=== PATIENT | female | born 1950 | race African-American/Black ===

== ENCOUNTER → 2016-12-14 | Outpatient (CLI) | payer MEDICARE, OTHER ==
--- NOTE | 2016-12-14 17:37 | WOMENS IMAGING REPORT ---
EXAM DESCRIPTION: 3D SCREENING MAMMO BILAT COMPLETED DATE/TIME: 12/14/2016 10:02 am REASON FOR STUDY: ROUTINE SCREENING; Z12.31 Z12.31 ENCNTR SCREEN MAMMOGRAM FOR MALIGNANT NEOPLASM O F YULIYA COMPARISON: Multiple since 2009 TECHNIQUE: Standard craniocaudal and mediolateral oblique views of each breast recorded using digita l acquisition and breast tomosynthesis. LIMITATIONS: None. FINDINGS: Findings present which are benign by mammographic criteria. No suspicious masses, calcifi cations or architectural distortion. Pertinent benign findings: Stable scattered benign skin calcifications Read with the assistance of CAD. .[facility] - R2 Cenova Version 1.3 .[facility] - R2 Cenova Version 1.3 .[facility] - R2 Cenova Version 2.4 .[facility] - R2 Cenova Version 2.4 .[facility] - R2 Digital Coordinator Version 9.2 Benign mammographic findings may include one or more of the following: Smooth masses, popcorn/rim/co arse calcifications, asymmetries, post-procedure changes, and lesions with long-standing stability. IMPRESSION: BENIGN MAMMOGRAPHIC FINDINGS. BIRADS 2 BREAST DENSITY: a. The breasts are almost entirely fatty. BIRAD: 2 BENIGN FINDING(S) RECOMMENDATION: RECOMMENDATION: ROUTINE SCREENING Please continue yearly bilateral screening tomosynthesis in December 2017 COMMENT: The patient has been notified of the results by letter per SA requirements. Additional no tification policies are in place for contacting patient with suspicious or incomplete findings. Quality ID #[id number]: The [employer] recommends an annual screening mammogram for women aged 40 years or over. This facility utilizes a reminder system to ensure that all patients receive reminder letters, and/or direct phone calls for appointments. This includes reminders for routine scr eening mammograms, diagnostic mammograms, or other Breast Imaging Interventions when appropriate. Th is patient will be placed in the appropriate reminder system. The [employer] (ACR) has developed recommendations for screening MRI of the breast s in certain patient populations, to be used in conjunction with mammography. Breast MRI surveillanc e may be appropriate for women with more than 20% lifetime risk of developing breast cancer as deter mined by genetic testing, significant family history of the disease, or history of mantle radiation f or Hodgkins Disease. ACR Practice Guidelines 2008. DBT Technology DBT is a type of tomographic mammography. With conventional mammography, overlapping breast tissue ma y make lesions difficult to detect, even with good compression. DBT uses an x-ray tube that rotates a round the breast, taking images at different angles. These images are then combined to create thin sl ices of the breast that the radiologist can view as a 3D reconstruction. The [employer] unit can perform full-field digital mammograms (2D imaging); or DBT (3D imaging); or both, in a combination mode that quickly performs both the mammogram and the tomosynthesis scan while the breast is still compressed. PQRS 6045F: Fluoroscopic imaging is not utilized for breast tomosynthesis. TECHNICAL DOCUMENTATION: FINDING NUMBER: (1) ASSESSMENT: (1) JOB ID: [id number] [employer]- All Rights Reserved
== END ==
LOC: WI 09:30
PROVIDERS: ATTEND Internal Medicine Geriatric Medicine
DX: Z12.31 Encounter for screening mammogram for malignant neoplasm of breast (principal)
CPT/HCPCS: 77063; G0202; 77067

== ENCOUNTER → 2017-10-07 | Outpatient (CLI) | payer MEDICARE ==
[2017-10-07 14:18] LABS: ALANINE AMINOTRANSFERASE 29 U/L (9-52); ALBUMIN 3.7 g/dL (3.5-5.0); ALKALINE PHOSPHATASE 75 U/L (38-126); ANION GAP 13 (5-19); ASPARTATE AMINO TRANSFERASE 29 U/L (14-36); BILIRUBIN,DIRECT 0.4 mg/dL (0.0-0.4); BILIRUBIN,TOTAL 0.4 mg/dL (0.2-1.3); BLOOD UREA NITROGEN 19 mg/dL (7-20); CALCIUM 9.6 mg/dL (8.4-10.2); CARBON DIOXIDE 32 mmol/L (22-30); CHLORIDE 103 mmol/L (98-107); GLUCOSE 101 mg/dL (75-110); POTASSIUM 4.1 mmol/L (3.6-5.0); SODIUM 148.3 mmol/L (137-145); TOTAL PROTEIN 7.4 g/dL (6.3-8.2)
== END ==
LOC: OD 12:34
PROVIDERS: ATTEND Internal Medicine Geriatric Medicine
DX: I10 Essential (primary) hypertension (principal)
CPT/HCPCS: 36415; 80053

== ENCOUNTER 2017-12-26 08:30 | Inpatient (IN) | payer MEDICARE ==
--- NOTE | 2017-12-23 16:51 | Physician Advisory Note ---
Physician Advisor ProgressNote .: Pursuant to the plan for [facility], I have reviewed the medical record for this patient. Physician Advisor Statement: Surgical necessity: excellent documentation in H&P of all surgical necessity points, except need details of x-ray report findings - jt space narrowing, osteophytes, .... Status: Medicare pt w/DM 2, CAD requiring angioplasty, gout, HTN, hypothyroidism, prior gastric bypass, underlying anemia, very limited ambulation for some time, expected to need rehab post-op per pre-op nurse. Surgery as Inpatient is appropriate. Thanks! CK
[~2017-12-26 08:30] MED LIST: BUPIVACAINE INJ/PF LIPOSOME/PF 266 MG/20 ML SDV INJ PRN; CEFAZOLIN INJ 1 GM VIAL IV PRN; IBUPROFEN 800 MG in NORMAL SALINE 250 ML IV PRN; LANSOPRAZOLE 15 MG TAB.RAP.DR PO PRN; OXYCODONE HCL SR 10 MG TABLET PO PRN; RINGERS SOLUTION,LACTATED 1,000 ML IV PRN; VANCOMYCIN HCL 1,000 MG in DEXTROSE 5%-WATER 250 ML IV PRN
[2017-12-26] MEDS ORDERED: OXYCODONE HCL SR 10 MG TABLET PO ONE (10:03)
[2017-12-26] MEDS ORDERED: LANSOPRAZOLE 15 MG TAB.RAP.DR ONE (10:03)
[2017-12-26] MEDS ORDERED: MIDAZOLAM 2 MG/2 ML INJ ONE (10:16)
[2017-12-26] MEDS ORDERED: ONDANSETRON HCL INJ/PF 4 MG/2 ML SDV ONE (10:16)
[2017-12-26] MEDS ORDERED: FENTANYL CITRATE INJ/PF 100 MCG/2 ML AMPUL ONE (10:16)
[2017-12-26] MEDS ORDERED: TRANEXAMIC ACID INJ/PF 1,000 MG/10 ML SDV IV ONE ×3 (10:17→17:16)
[2017-12-26] MEDS ORDERED: PROPOFOL INJ 200 MG/20 ML VIAL IV ONE (10:17)
[2017-12-26] MEDS ORDERED: CLINDAMYCIN 600 MG/D5W RTU 600 MG/50 ML RTUPB IV ONE (10:21)
[2017-12-26] MEDS ORDERED: THROMBIN (BOVINE) 5000 UNIT EPITAXIS KIT ONE (10:25)
[2017-12-26] MEDS ORDERED: BUPIVACAINE INJ/PF LIPOSOME/PF 266 MG/20 ML SDV ONE (10:25)
[2017-12-26] MEDS ORDERED: THROMBIN (BOVINE) TOPICAL 20000 UNIT VIAL ONE (10:25)
[2017-12-26] MEDS ORDERED: BUPIVACAINE HCL/DEX-WATER/PF 15 MG/2 ML AMPULE ONE (10:44)
[2017-12-26] MEDS ORDERED: PROMETHAZINE HCL INJ 25 MG/1 ML VIAL IV PRN ×2 (12:04)
[2017-12-26] MEDS ORDERED: MORPHINE SULFATE 10 MG/ML INJ IV PRN ×3 (12:04→13:02)
[2017-12-26] MEDS ORDERED: FENTANYL CITRATE INJ/PF 100 MCG/2 ML AMPUL IV PRN ×3 (12:04)
[2017-12-26] MEDS ORDERED: MEPERIDINE HCL/PF INJ 25 MG/1 ML DISP.SYRIN IV PRN (12:04)
[2017-12-26] MEDS ORDERED: DIPHENHYDRAMINE HCL 50 MG/ML VIAL IV PRN ×2 (12:04→13:02)
[2017-12-26] MEDS ORDERED: RINGERS SOLUTION,LACTATED 1,000 ML IV PRN (13:02)
[2017-12-26] MEDS ORDERED: OXYCODONE HCL IR 5 MG TABLET PO PRN (13:02)
[2017-12-26] MEDS ORDERED: ACETAMINOPHEN 325 MG TABLET PO PRN (13:02)
[2017-12-26] MEDS ORDERED: MAG HYDROX/AL HYDROX/SIMETH SUSP 30 ML UDCUP PO PRN (13:02)
[2017-12-26] MEDS ORDERED: ONDANSETRON 4 MG TAB.RAPDIS PO PRN (13:02)
[2017-12-26] MEDS ORDERED: ZOLPIDEM TARTRATE 5 MG TABLET PO PRN (13:02)
[2017-12-26] MEDS ORDERED: ONDANSETRON HCL INJ/PF 4 MG/2 ML SDV IV PRN (13:02)
--- NOTE | 2017-12-26 13:02 | Operative Report ---
Operative Report DATE OF SURGERY: 12/26/17 PREOPERATIVE DIAGNOSIS: Left knee arthritis OPERATION: Left knee arthroplasty SURGEON: DEANA OBRIEN ANESTHESIA: Spinal TISSUE REMOVED OR ALTERED: Bone to pathology ESTIMATED BLOOD LOSS: 100 PROCEDURE: Implants used: Femur: Mejia triathlon size 5 CR femur Tibia: 4 tibia Tibial liner: 11 mm CS insert Patella: 32 mm oval patella Procedure with the patient supine on the operating table the left the limb is prepped and draped in a sterile fashion. The limb was elevated for exsanguination and the tourniquet inflated to 280 torr. A standard midline median parapatellar approach the knee is taken. Access is gained to the femoral canal through the intercondylar notch. Intramedullary alignment instrumentation used to resect 10 mm of distal femur in 5 of valgus. Sizing guide indicated a size 5 femur. Appropriate cutting jig is then used to fashion anterior posterior and chamfer cuts. A trial reduction femurs performed and this is judged to be adequate. Attention was next turned to the tibia. Using an extra medullary alignment system two millimeters was resected off the lateral tibial plateau. This is sized to a size 4 tibia. A trial reduction was now performed with a 5 femur and a for tibia using a 11 millimeters spacer. It is full extension and central patellofemoral tracking. The articular surface the patella was next resected using an oscillating saw. All trial implants were removed. Polymethylmethacrylate is mixed and used to cement the above implants in place. On adequate curing the cement excess cement was removed the tourniquet was deflated hemostasis obtained the wound is then closed in layers using interrupted Vicryl followed by tim. A sterile compressive dressing was applied and the patient returned to recovery room in satisfactory condition.
[2017-12-26] MEDS ORDERED: EPHEDRINE SULFATE INJ 50 MG/1 ML AMPULE ONE (13:30)
--- NOTE | 2017-12-26 14:22 | RADIOLOGY REPORT (SQ) ---
EXAM DESCRIPTION: KNEE LEFT 2 VIEWS COMPLETED DATE/TIME: 12/26/2017 1:56 pm REASON FOR STUDY: Post OP -Long Cassette in PACU M17.12 UNILATERAL PRIMARY OSTEOARTHRITIS, LEFT KNE E COMPARISON: None. NUMBER OF VIEWS: Two view(s). TECHNIQUE: Digital radiographic images of the left knee post-procedure. LIMITATIONS: None. FINDINGS: BONES: No worrisome or unexpected findings post-procedure. DEVICE: Total knee arthroplasty. SOFT TISSUES: No worrisome findings. Expected postoperative soft tissue changes. IMPRESSION: SATISFACTORY POSTOPERATIVE LEFT KNEE. TECHNICAL DOCUMENTATION: JOB ID: [id number] [employer]- All Rights Reserved Reading location - IP/workstation name: [email or web address]
[2017-12-26] MEDS: MORPHINE SULFATE 10 MG/ML INJ IV PRN ×4 (17:45→23:01)
[2017-12-26] MEDS: SENNOSIDES/DOCUSATE 8.6-50 MG 1 EACH TABLET PO SCH (17:46)
[2017-12-26] MEDS: IBUPROFEN 800 MG in NORMAL SALINE 250 ML IV SCH (18:40)
[2017-12-26] MEDS: MORPHINE SULFATE 10 MG/ML INJ IM PRN (19:04)
[2017-12-26] MEDS: OXYCODONE HCL SR 10 MG TABLET PO SCH (21:38)
[2017-12-27] MEDS: MORPHINE SULFATE 10 MG/ML INJ IM PRN ×3 (00:43→09:17)
[2017-12-27] MEDS ORDERED: VANCOMYCIN HCL 1,000 MG in DEXTROSE 5%-WATER 250 ML IV ONE (01:02)
[2017-12-27] MEDS: IBUPROFEN 800 MG in NORMAL SALINE 250 ML IV SCH ×3 (02:11→17:43)
[2017-12-27] MEDS: MORPHINE SULFATE 10 MG/ML INJ IV PRN ×2 (02:11→03:30)
[2017-12-27 06:21] LABS: HEMATOCRIT 32.2 % (36.0-47.0); HEMOGLOBIN 11.1 g/dL (12.0-15.5); MEAN CORPUSCULAR HEMOGLOBIN 31.7 pg (27.0-33.4); MEAN CORPUSCULAR HGB CONC 34.4 g/dL (32.0-36.0); MEAN CORPUSCULAR VOLUME 92 fl (80-97); PLATELET COUNT 123 10^3/uL (150-450); RED BLOOD COUNT 3.49 10^6/uL (3.72-5.28); RED CELL DISTRIBUTION WIDTH 14.1 % (11.5-14.0); WHITE BLOOD COUNT 6.9 10^3/uL (4.0-10.5)
[2017-12-27 06:42] LABS: ANION GAP 10 (5-19); BLOOD UREA NITROGEN 14 mg/dL (7-20); CALCIUM 8.8 mg/dL (8.4-10.2); CARBON DIOXIDE 27 mmol/L (22-30); CHLORIDE 103 mmol/L (98-107); GLUCOSE 126 mg/dL (75-110); POTASSIUM 3.4 mmol/L (3.6-5.0); SODIUM 139.6 mmol/L (137-145)
[2017-12-27] MEDS: LANSOPRAZOLE 30 MG TAB.RAP.DR PO SCH (06:42)
--- NOTE | 2017-12-27 06:51 | PDOC PROGRESS REPORT ---
Subjective Progress Note for:: 12/27/17 Reason For Visit: M17.12 UNILATERAL PRIMARY OSTEOARTHRITIS, LEFT KNE 67-year-old black female now postop day 1 from left knee arthroplasty. Patient is an uneventful postoperative course. She was not mobilized yesterday with physical therapy because of prolonged anesthetic effects Physical Exam Vital Signs: Temp Pulse Resp BP Pulse Ox 36.6 C 58 L 16 125/64 100 12/26/17 22:40 12/26/17 22:40 12/26/17 22:40 12/26/17 22:40 12/26/17 22:40 Intake & Output 12/25/17 12/26/17 12/27/17 06:59 06:59 06:59 Intake Total 5990 Output Total 4100 Balance 1890 Weight 92.5 kg General appearance: PRESENT: no acute distress, mild distress Head exam: PRESENT: normocephalic Respiratory exam: PRESENT: unlabored Cardiovascular exam: PRESENT: RRR Vascular exam: PRESENT: normal capillary refill GI/Abdominal exam: PRESENT: soft Rectal exam: PRESENT: deferred Extremities exam: PRESENT: other - Left lower extremity dressing clean dry and intact. Distal neurovascular examination is intact. Neurological exam: PRESENT: alert, awake, oriented to person, oriented to place , oriented to time, oriented to situation. ABSENT: motor sensory deficit Psychiatric exam: PRESENT: appropriate affect, normal mood. ABSENT: homicidal ideation, suicidal ideation Skin exam: PRESENT: dry, intact, warm. ABSENT: cyanosis, rash Results Laboratory Results: 12/27/17 05:58 12/27/17 05:58 12/26/17 12/27/17 12/27/17 09:51 05:58 05:58 WBC 6.9 RBC 3.49 L Hgb 11.1 L Hct 32.2 L MCV 92 MCH 31.7 MCHC 34.4 RDW 14.1 H Plt Count 123 L Sodium 139.6 Potassium 3.3 L 3.4 L Chloride 103 Carbon Dioxide 27 Anion Gap 10 BUN 14 Creatinine 0.90 Est GFR ( Amer) > 60 Est GFR (Non-Af Amer) > 60 Glucose 126 H Calcium 8.8 Impressions: Knee X-Ray 12/26/17 13:04 IMPRESSION: SATISFACTORY POSTOPERATIVE LEFT KNEE. Status: Imported from PACS Assessment & Plan - Diagnosis (1) Arthritis of left knee Is this a current diagnosis for this admission?: Yes Plan: 67-year-old black female postop day 1 left knee arthroplasty. Patient not yet been out of bed and has not obtained a sufficient functional status would allow consideration of discharge home today. Continue with physical therapy today and weightbearing as tolerated basis and anticipate discharge home tomorrow with home health services and DME. - Time Time Spent with patient: 15-24 minutes Anticipated discharge: Home with Homehealth Within: within 24 hours
[2017-12-27] MEDS ORDERED: OXYCODONE HCL IR 5 MG TABLET PO PRN (07:00)
[2017-12-27] MEDS: OXYCODONE HCL IR 5 MG TABLET PO PRN ×2 (08:05→17:45)
[2017-12-27] MEDS ORDERED: (PENDING PHARMACY ID) (Atenolol [Atenolol] 100 MG) PO SCH (10:00)
[2017-12-27] MEDS: HYDROCHLOROTHIAZIDE 12.5 MG TABLET PO SCH (10:36)
[2017-12-27] MEDS: PRENATAL VITAMIN W DHA CAPSULE PO SCH (10:36)
[2017-12-27] MEDS: SENNOSIDES/DOCUSATE 8.6-50 MG 1 EACH TABLET PO SCH ×2 (10:37→17:43)
[2017-12-27] MEDS: ALLOPURINOL 100 MG TABLET PO SCH (10:37)
[2017-12-27] MEDS: ATENOLOL 50 MG TABLET PO SCH (10:37)
[2017-12-27] MEDS: LEVOTHYROXINE SODIUM 0.05 MG TABLET PO SCH (10:37)
[2017-12-27] MEDS: ASPIRIN 81 MG TABLET, ENT COATED PO SCH (10:38)
[2017-12-27] MEDS: OXYCODONE HCL SR 10 MG TABLET PO SCH ×2 (10:38→21:44)
[2017-12-28] MEDS: IBUPROFEN 800 MG in NORMAL SALINE 250 ML IV SCH ×3 (02:22→13:30)
[2017-12-28] MEDS: LANSOPRAZOLE 30 MG TAB.RAP.DR PO SCH (06:02)
[2017-12-28 06:10] LABS: HEMATOCRIT 31.9 % (36.0-47.0); HEMOGLOBIN 10.8 g/dL (12.0-15.5); MEAN CORPUSCULAR HEMOGLOBIN 31.2 pg (27.0-33.4); MEAN CORPUSCULAR HGB CONC 33.8 g/dL (32.0-36.0); MEAN CORPUSCULAR VOLUME 92 fl (80-97); PLATELET COUNT 123 10^3/uL (150-450); RED BLOOD COUNT 3.47 10^6/uL (3.72-5.28); RED CELL DISTRIBUTION WIDTH 14.5 % (11.5-14.0); WHITE BLOOD COUNT 8.8 10^3/uL (4.0-10.5)
--- NOTE | 2017-12-28 07:06 | PDOC PROGRESS REPORT ---
Subjective Progress Note for:: 12/28/17 Reason For Visit: M17.12 UNILATERAL PRIMARY OSTEOARTHRITIS, LEFT KNE 67-year-old black female postop day 2 left knee arthroplasty. Patient has no complaints this morning. Physical Exam Vital Signs: Temp Pulse Resp BP Pulse Ox 36.9 C 64 17 128/54 H 98 12/27/17 21:46 12/27/17 21:46 12/27/17 21:46 12/27/17 21:46 12/27/17 21:46 Intake & Output 12/27/17 12/28/17 12/29/17 06:59 06:59 06:59 Intake Total 5990 2403 Output Total 4100 Balance 1890 2403 Weight 92.5 kg 93.6 kg General appearance: PRESENT: no acute distress Head exam: PRESENT: normocephalic Respiratory exam: PRESENT: unlabored Cardiovascular exam: PRESENT: RRR Pulses: PRESENT: +1 pedal pulses bilateral Vascular exam: PRESENT: normal capillary refill GI/Abdominal exam: PRESENT: soft Rectal exam: PRESENT: deferred Musculoskeletal exam: PRESENT: other - Impressive dressing is taken down today. Underlying operative dressing is clean dry and intact. Minimal pedal edema. Distal neurovascular examination is intact. Neurological exam: PRESENT: alert, awake, oriented to person, oriented to place , oriented to time, oriented to situation. ABSENT: motor sensory deficit Psychiatric exam: PRESENT: appropriate affect, normal mood. ABSENT: homicidal ideation, suicidal ideation Skin exam: PRESENT: dry, intact, warm. ABSENT: cyanosis, rash Results Laboratory Results: 12/28/17 05:41 12/27/17 05:58 12/28/17 05:41 WBC 8.8 RBC 3.47 L Hgb 10.8 L Hct 31.9 L MCV 92 MCH 31.2 MCHC 33.8 RDW 14.5 H Plt Count 123 L Impressions: Knee X-Ray 12/26/17 13:04 IMPRESSION: SATISFACTORY POSTOPERATIVE LEFT KNEE. Status: Imported from PACS Assessment & Plan - Diagnosis (1) Arthritis of left knee Is this a current diagnosis for this admission?: Yes Plan: Patient to receive ongoing physical therapy for range of motion weightbearing as tolerated ambulation. Anticipate discharge to detention facility tomorrow. - Time Time Spent with patient: Less than 15 minutes Anticipated discharge: SNF Within: within 24 hours
[2017-12-28] MEDS: PRENATAL VITAMIN W DHA CAPSULE PO SCH (10:01)
[2017-12-28] MEDS: OXYCODONE HCL SR 10 MG TABLET PO SCH (10:01)
[2017-12-28] MEDS: ATENOLOL 50 MG TABLET PO SCH (10:02)
[2017-12-28] MEDS: SENNOSIDES/DOCUSATE 8.6-50 MG 1 EACH TABLET PO SCH ×2 (10:02→18:39)
[2017-12-28] MEDS: HYDROCHLOROTHIAZIDE 12.5 MG TABLET PO SCH (10:02)
[2017-12-28] MEDS: LEVOTHYROXINE SODIUM 0.05 MG TABLET PO SCH (10:02)
[2017-12-28] MEDS: ASPIRIN 81 MG TABLET, ENT COATED PO SCH (10:02)
[2017-12-28] MEDS: ALLOPURINOL 100 MG TABLET PO SCH (10:02)
[2017-12-29] MEDS: OXYCODONE HCL IR 5 MG TABLET PO PRN ×2 (00:11→11:03)
[2017-12-29] MEDS: LANSOPRAZOLE 30 MG TAB.RAP.DR PO SCH (05:54)
--- NOTE | 2017-12-29 05:58 | PDOC TRANSFER SUMMARY ---
General - Admit/Disc Date/PCP Admission Date/Primary Care Provider: 12/26/17 09:06 [facility] Discharge Date: 12/29/17 - Discharge Diagnosis (1) Arthritis of left knee Is this a current diagnosis for this admission?: Yes - Additional Information Resuscitation Status: Full Code Home Medications: Atenolol 100 mg PO DAILY 05/08/13 Cholecalciferol (Vitamin D3) [Vitamin D-3] 500 unit PO DAILY 05/08/13 Cyanocobalamin (Vitamin B-12) [Vitamin B-12] 50 mcg PO ASDIR 05/08/13 Hydrochlorothiazide 25 mg PO DAILY 05/08/13 Levothyroxine Sodium [Synthroid] 50 mcg PO DAILY 05/08/13 Tramadol HCl 50 mg PO Q6H 12/22/17 Allopurinol [Zyloprim 100 mg Tablet] 100 mg PO DAILY 12/26/17 History of Present Illness Admission Date/PCP: 12/26/17 09:06 [facility] History of Present Illness: JENA SMITH is a 67 year old female Patient is a 67-year-old black female with progressive left knee pain and functional disability secondary osteoarthritis. She is admitted for an elective left knee arthroplasty. Hospital Course Hospital Course: The patient is admitted through the operating room where she undergoes uncomplicated left knee arthroplasty. She is admitted to the floor in satisfactory condition. She makes excellent progress with physical therapy both in terms of ambulation as well as range of motion. Compressive dressing is taken down on postop day 2. Underlying postop dressing remains clean dry and intact. There is minimal pedal edema. Physical Exam Vital Signs: Temp Pulse Resp BP Pulse Ox 37.3 C 77 16 128/54 H 99 12/28/17 23:15 12/28/17 23:15 12/28/17 23:15 12/28/17 23:15 12/28/17 23:15 Intake & Output 12/27/17 12/28/17 12/29/17 06:59 06:59 06:59 Intake Total 5990 2403 779 Output Total 4100 Balance 1890 2403 779 Weight 92.5 kg 93.6 kg General appearance: PRESENT: no acute distress, mild distress Head exam: PRESENT: normocephalic Respiratory exam: PRESENT: unlabored Cardiovascular exam: PRESENT: RRR Pulses: PRESENT: +1 pedal pulses bilateral Vascular exam: PRESENT: normal capillary refill GI/Abdominal exam: PRESENT: soft Rectal exam: PRESENT: deferred Musculoskeletal exam: PRESENT: other - Left knee dressing clean dry and intact. There is no erythema or drainage. Tenderness is present. No ecchymosis. Minimal pedal edema. Distal neurovascular examination is intact. Neurological exam: PRESENT: alert, awake, oriented to person, oriented to place , oriented to time, oriented to situation, CN II-XII grossly intact. ABSENT: motor sensory deficit Psychiatric exam: PRESENT: appropriate affect, normal mood. ABSENT: homicidal ideation, suicidal ideation Skin exam: PRESENT: dry, intact, warm. ABSENT: cyanosis, rash Results Laboratory Results: 12/28/17 05:41 12/27/17 05:58 12/28/17 05:41 WBC 8.8 RBC 3.47 L Hgb 10.8 L Hct 31.9 L MCV 92 MCH 31.2 MCHC 33.8 RDW 14.5 H Plt Count 123 L Impressions: Knee X-Ray 12/26/17 13:04 IMPRESSION: SATISFACTORY POSTOPERATIVE LEFT KNEE. Status: Imported from PACS Transfer Plan - Time Spent with Patient Time spent with patient: Less than 30 Minutes Qualifiers - * PATIENT BEING DISCHARGED WITH ANY OF THE FOLLOWING DIAGNOSIS: No VTE patient discharged on overlapping Therapy?: Yes Plan Discharge Plan: Patient to be discharged to a assisted facility when bed available. Ongoing physical therapy for range of motion, strengthening, progressive ambulation and weightbearing as tolerated basis. Follow-up with Dr. Patrick Chahal [place] for surgery in 2 weeks for staple removal. Time Spent: Less than 30 Minutes
[2017-12-29 06:41] LABS: HEMATOCRIT 31.7 % (36.0-47.0); HEMOGLOBIN 10.8 g/dL (12.0-15.5); MEAN CORPUSCULAR HEMOGLOBIN 30.7 pg (27.0-33.4); MEAN CORPUSCULAR VOLUME 90 fl (80-97); PLATELET COUNT 124 10^3/uL (150-450); RED BLOOD COUNT 3.52 10^6/uL (3.72-5.28); RED CELL DISTRIBUTION WIDTH 14.3 % (11.5-14.0); WHITE BLOOD COUNT 9.1 10^3/uL (4.0-10.5)
[2017-12-29] MEDS: ASPIRIN 81 MG TABLET, ENT COATED PO SCH (09:30)
[2017-12-29] MEDS: PRENATAL VITAMIN W DHA CAPSULE PO SCH (09:30)
[2017-12-29] MEDS: SENNOSIDES/DOCUSATE 8.6-50 MG 1 EACH TABLET PO SCH (09:30)
[2017-12-29] MEDS: ATENOLOL 50 MG TABLET PO SCH (09:31)
[2017-12-29] MEDS: ALLOPURINOL 100 MG TABLET PO SCH (09:31)
[2017-12-29] MEDS: LEVOTHYROXINE SODIUM 0.05 MG TABLET PO SCH (09:31)
[2017-12-29] MEDS: HYDROCHLOROTHIAZIDE 12.5 MG TABLET PO SCH (09:32)
[2017-12-29 17:05] VITALS: BP 140/55
== END 2017-12-29 16:45 | DRG 470 ==
LOC: INOR 09:06 → 4S 17:38
PROVIDERS: ADMIT Orthopaedic Surgery; ATTEND Orthopaedic Surgery
PROC: 0SRD0J9 Replacement of Left Knee Joint with Synthetic Substitute, Cemented, Open Approach (ICD-10-PCS; principal; 2017-12-26 11:30)
DX: M17.12 Unilateral primary osteoarthritis, left knee (principal); E03.9 Hypothyroidism, unspecified; M10.9 Gout, unspecified; I10 Essential (primary) hypertension; I25.10 Atherosclerotic heart disease of native coronary artery without angina pectoris; M19.90 Unspecified osteoarthritis, unspecified site; D64.9 Anemia, unspecified; Z79.899 Other long term (current) drug therapy; Z98.84 Bariatric surgery status; Z90.710 Acquired absence of both cervix and uterus
CPT/HCPCS: 01402; 36415; 80048; 84132; 85027; 88305; 88311; 94799; C1713; C1776; C9290; G8978-GP; G8979-GP; G8987-GO; G8988-GO; J1200; J1741; J2250; J2270; J2405; J2704; J3010; J3370; J3490; J7050; J7060

== ENCOUNTER → 2019-01-29 | Outpatient (CLI) | payer MEDICARE, OTHER ==
--- NOTE | 2019-01-29 15:14 | WOMENS IMAGING REPORT ---
EXAM DESCRIPTION: 3D SCREENING MAMMO BILAT COMPLETED DATE/TIME: 01/29/2019 7:58 am REASON FOR STUDY: Z12.31 ENCOUNTER FOR SCREENING MAMMOGRAM FOR MALIGNANT NEOPLASM OF BREAST Z12.31 ENCNTR SCREEN MAMMOGRAM FOR MALIGNANT NEOPLASM OF YULIYA COMPARISON: 2013 2017 EXAM PARAMETERS: Views: Standard craniocaudal and mediolateral oblique views of each breast recorded using digital acquisition and breast tomosynthesis. Read with the assistance of CAD. .[facility] Medical [employer] Fixture Builder Apprentice Version 9.2 LIMITATIONS: None. FINDINGS: No suspicious masses, suspicious calcifications or architectural distortion. No areas of c oncern. IMPRESSION: NEGATIVE MAMMOGRAM. BIRADS 1. BREAST DENSITY: a. The breasts are almost entirely fatty. BIRAD: ASSESSMENT: 1 NEGATIVE RECOMMENDATION: ROUTINE SCREENING COMMENT: The patient has been notified of the results by letter per MQSA requirements. Additional no tification policies are in place for contacting patient with suspicious or incomplete findings. Quality ID #[id number]: The [employer] recommends an annual screening mammogram for women aged 40 years or over. This facility utilizes a reminder system to ensure that all patients receive reminder letters, and/or direct phone calls for appointments. This includes reminders for routine scr eening mammograms, diagnostic mammograms, or other Breast Imaging Interventions when appropriate. Th is patient will be placed in the appropriate reminder system. TECHNICAL DOCUMENTATION: FINDING NUMBER: (1) ASSESSMENT: (1) JOB ID: [id number] [place]- All Rights Reserved Reading location - IP/workstation name: [email or web address]
== END ==
LOC: WI 07:05
PROVIDERS: ATTEND Internal Medicine Geriatric Medicine
DX: Z12.31 Encounter for screening mammogram for malignant neoplasm of breast (principal)
CPT/HCPCS: 77063; 77067